=== PATIENT | male | born 1980 | race Caucasian/White ===

== ENCOUNTER 2018-02-13 12:10 | Emergency (ER) | payer OTHER ==
[~2018-02-13] VITALS: Ht 188 cm; Wt 124.7 kg
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
--- OUTSIDE RECORDS SUMMARY | ~2018-02-13 | XMS | Clinical Summary ---
Demographics + + + | Address | [address] | | | [place] [address] | + + + | Home Phone | | + + + | Preferred Language | Unknown | + + + | Marital Status | | + + + | Synagogue Affiliation | Unknown | + + + | Race | Unknown | + + + | Ethnic Group | Unknown | + + + Author + + + | Author | [facility] | | | and [place] | + + + | Organization | [facility] | | | and [place] | + + + | Address | Unknown | + + + | Phone | Unavailable | + + + Support + + + + + | Name | Relationship | Address | Phone | + + + + + | Karen Ace | ECON | [address] | | | | | [place] | | | | | [address] | | + + + + + Care Team Providers + +------+ + | Care Systems Management Consultant Name | Role | Phone | + [...] Graft Bone Putty 2.5cc - | | Central Lab Technician | [employer] - | | 01/15/ | [id number] | | [id number]: Qty: 1 | | ior: | MEDT | | 2015 | | | on 09/29/2014 by Victor Manuel Cornelius | | Spine | | | | /[id number] | | MD Jerome | | Lumbar | | | | 4-214 | | | | | | | | / | + +------+--------+ +--------+--------+--------+ | Graft Bone Putty 2.5cc - | | Central Lab Technician | [employer] - | | 07/25/ | [id number] | | [id number]: Qty: 1 | | ior: | MEDT | | 2015 | | | on 09/29/2014 by Victor Manuel Cornelius | | Spine | | | | /[id number] | | MD Jerome | | Lumbar | | | | 5-188 | | | | | | | | / | + +------+--------+ +--------+--------+--------+ | Screw Set - | | Central Lab Technician | [employer] - | | | [id number] | | [id number]: Qty: 4 on | | ior: | NVSV | | | 0 / / | | 09/29/2014 by Victor Manuel Cornelius, | | Spine | | | | | | MD | | Lumbar | | | | | + +------+--------+ +--------+--------+--------+ | 5.5 X 55mm ScrewImplanted: | | Central Lab Technician | | | | [id number] | | Qty: 2 on 09/29/2014 by Ashli, | | ior: | | | | 5A / / | | Victor Manuel Cano MD | | Spine | | | | | | | | Lumbar | | | | | + +------+--------+ +--------+--------+--------+ | Joseph Ti Prebent Lordtc 45mm - | | Central Lab Technician | [employer] - | | | [id number] | | [id number]: Qty: 2 on | | ior: | NVSV | | | 5 / / | | 09/29/2014 by Victor Manuel Cornelius, | | Spine | | | | | Noe MD | | Lumbar | | | | | + +------+--------+ +--------+--------+--------+ | 6.5 X 60 Mm ScrewImplanted: | | Central Lab Technician | | | | [id number] | | Qty: 2 on 09/29/2014 by [...] | STATE | xxxxxxxxxxx | Indemn | [phone] | | | FARM | xx [...] | [place] | | | [address] | [phone] | + +--------+ +--------+ + + | PEDRO ACE | Third | Other | [birth year] | Home: | [address] | | | [employer]arian | | 1980 | [phone] | [place] | | | [place] | | | [address] | [phone] | | | [place] | | | | | + +--------+ +--------+ + +
[2018-02-13] MEDS ORDERED: MOBIC7.5 MG PO (14:34)
[2018-02-13] MEDS ORDERED: NORCO 10-325 T1 EACH PO (14:36)
[2018-02-13] MEDS ORDERED: BACLOFEN10 MG PO (14:36)
[2018-02-13] MEDS ORDERED: METHYLPREDNISOLO4 M1 PO (14:36)
== END 2018-02-13 14:54 | disposition home or self-care (01) ==
LOC: ED 12:10
DX: M54.40 Lumbago with sciatica, unspecified side (principal); M62.830 Muscle spasm of back; Z88.1 Allergy status to other antibiotic agents
CPT/HCPCS: 99283